=== PATIENT | female | born 1985 | race African-American/Black ===

== ENCOUNTER 2017-08-16 03:02 | Inpatient (IN) | payer OTHER ==
[2017-08-16 08:31] VITALS: BP 99/55; PULSE 97; RESP 18; TEMP 99.2; O2SAT 95
[2017-08-16] MEDS ORDERED: PRED20 PO (09:10)
[2017-08-16] MEDS ORDERED: ONDANSETRON HCL 4 MG/2 ML VIAL IV PUSH PRN (09:15)
[2017-08-16] MEDS ORDERED: ONDANSETRON ODT 4 MG TAB SL PRN (09:15)
[2017-08-16] MEDS: PANTOPRAZOLE SOD 40 MG DELAYED RELEASE TAB PO SCH (09:15)
--- NOTE | 2017-08-16 09:47 | HHI.HP ---
HPI Service [facility] Hospitalists Primary Care Physician Dr. Yousif Pugh Admission Diagnosis Autoimmune hepatitis; liver cyst Chief Complaint: Pleuritic chest pain Travel History International Travel<30 Days: No Contact w/Intl Traveler <30 Da: No Traveled to Known Affected Are: No History of Present Illness Ms. Garcia is a pleasant 32 y/o AAF with autoimmune hepatitis,liver cirrhosis, thrombocytopenia who presented to the ED at [facility] on 08/15/17 with complaints of pleuritic chest pain. She reports that around 1 month ago she developed a productive cough with white phlegm and some subjective chills. She denies any associated sore throat, sinus congestion, or fevers. She reports that the cough lasted about 2 weeks and then she went to her PCP who prescribed Amoxicillin for about 7 days and the cough improved. But over the last week the cough has returned. She is unable to recall any associated post-nasal drip, sneezing, fevers/chills, sore throat, itchy/watery eyes. She has had some occasional sinus congestion in the morning. The cough does not seem to be keeping her up during the night. Then two days ago she started experiencing some pleuritic chest pain with coughing or deep breathing which was located midsternal and in the middle of her back. This seemed to be more prominent yesterday and this prompted her to go to the ED in [place] for further evaluation. Her lab work in the ED noted WBC count 8.1, Hgb 11.1, Hct 33.5, Platelet count 88,000. Her D-Dimer was elevated at 1.55 so CTA was ordered and revealed negative for pulmonary embolic disease, minimal dependent atelectasis in the lungs, and liver cirrhosis with 8.8cm cystic mass in the right lobe. Her LFTs are elevated with TBili 3.6, AST 426, ALT 289, AlkPhos 193. Gallbladder US was performed which noted circumscribed mildly complex 9.5 x 7.8cm cyst in the right lobe of the liver of unknown etiology and multiple small gallstones with common bile duct mildly prominent at 7mm. Pt reports that she has been taking Prednisone 20mg but is not taking this daily as she has been trying to stretch out her prescriptions. She was previously following with Dr. Miranda but has not followed up in the office with her since 11/2016. She was previously on Azathioprine 50mg po daily but has not been taking this for some time, although she states that she has some pills still but has only been taking them occasionally again to try to stretch out her prescription. She had outpt labs on 08/04/17 which noted Tbili 2.6, AST 355, ALT 252, and AlkPhos 187. Pt had previously been evaluated at [facility] in 2009 and reports that she was being considered for liver transplant. She was on 6-MP at that time but was reportedly taken off this medication but to neutropenia. She states that she was later placed on Prednisone and Azathioprine which helped improve her status enough to be taken off the transplant list. Pt denies any fevers, abdominal pain, nausea/vomiting, change in stool or bowel habits, weight changes, SOB, palpitations or weakness. Review of Systems Constitutional: DENIES: Fever, Chills Eyes: DENIES: Vision loss Ears, nose, mouth, throat: DENIES: Hearing loss Respiratory: COMPLAINS OF: Cough, DENIES: Shortness of breath Cardiovascular: COMPLAINS OF: Chest pain (pleuritic pain with cough or deep breathing), Lower Extremity Edema Gastrointestinal: DENIES: Abdominal pain, Black stools, Bloody stools, Constipation, Diarrhea, Nausea, Vomiting, Difficulty Swallowing Genitourinary: DENIES: Urinary frequency, Urgency, Hematuria, Dysuria Musculoskeletal: DENIES: Back pain, Neck pain Integumentary: DENIES: Rash Neurologic: DENIES: Headache, Localized weakness Psychiatric: DENIES: Confusion Past Family Social History Past Medical History Autoimmune Hepatitis Liver cirrhosis GERD Hx of gastric ulcer Past Surgical History Liver biopsy in 2007 Bone marrow biopsy in 2007 Reported Medications Prednisone 20 Mg PO DAILY Allergies: Coded Allergies: No Known Allergies (Verified Allergy, Unknown, 08/16/17) Family History Uncle with hx of colon cancer, at age 50 Grandfather with hx of colon cancer, at age 87 Social History Denies any alcohol, tobacco, or illicit drug use Pt works at a 139[employer] and at [employer] Physical Exam Vital Signs Vital Signs Date Time Temp Pulse Resp B/P (MAP) Pulse Ox O2 Delivery O2 Flow Rate FiO2 08/16/17 08:31 99.2 97 18 99/55 (70) 95 Physical Exam GENERAL: This is a well-nourished, well-developed patient, in no apparent distress. SKIN: No rashes, ecchymoses or lesions. Cool and dry. HEENT: Atraumatic. Normocephalic. No temporal or scalp tenderness. Scleral icterus. Airway patent. NECK: Trachea midline, supple, nontender CARDIO: Regular. RESP: CTA bilaterally. No wheezes, rales, or rhonchi. ABD: +BS, soft, obese, non-tender, nondistended. EXT: Bilateral LE pitting edema NEURO: Awake and alert. Motor and sensory grossly within normal limits. Five out of 5 muscle strength in all muscle groups. Normal speech. Imaging Gallbladder US (08/16/17): 1. Circumscribed mildly complex 9.5 x 7.8cm cyst in the right lobe of the liver of unknown etiology 2. Multiple small gallstones. Common bile duct mildly prominent at 7mm. CT Pulmonary Angiogram (08/16/17): 1. Negative for pulmonary embolic disease. Minimal dependent atelectasis in the lungs. 2. Liver cirrhosis with 8.8cm cystic mass in the right lobe. Caprini VTE Risk Assessment Caprini VTE Risk Assessment: Mod/High Risk (score >= 2) Caprini Risk Assessment Model Point Value = 1 Point Value = 2 Point Value = 3 Point Value = 5 Age 41-60 Minor surgery BMI > 25 kg/m2 Swollen legs Varicose veins or History of unexplained or recurrent spontaneous Oral contraceptives or hormone replacement Sepsis (< 1 month) Serious lung disease, including pneumonia (< 1 month) Abnormal pulmonary function Acute myocardial infarction Congestive heart failure (< 1 month) History of inflammatory bowel disease Medical patient at bed rest Age 61-74 Arthroscopic surgery Major open surgery (> 45 min) Laparoscopic surgery (> 45 min) Malignancy Confined to bed (> 72 hours) Immobilizing plaster cast Central venous access Age >= 75 History of VTE Family history of VTE Factor V Leiden Prothrombin [id number] Lupus anticoagulant Anticardiolipin antibodies Elevated serum homocysteine Heparin-induced thrombocytopenia Other congenital or acquired thrombophilia Stroke (< 1 month) Elective arthroplasty Hip, pelvis, or leg fracture Acute spinal cord injury (< 1 month) Prophylaxis Regimen Total Risk Factor Score Risk Level Prophylaxis Regimen 0-1 Low Early ambulation 2 Moderate Order ONE of the following: *Sequential Compression Device (SCD) *Heparin 5000 units SQ BID 3-4 Higher Order ONE of the following medications: *Heparin 5000 units SQ TID *Enoxaparin/Lovenox 40 mg SQ daily (WT < 150 kg, CrCl > 30 mL/min) *Enoxaparin/Lovenox 30 mg SQ daily (WT < 150 kg, CrCl > 10-29 mL/min) *Enoxaparin/Lovenox 30 mg SQ BID (WT < 150 kg, CrCl > 30 mL/min) AND/OR *Sequential Compression Device (SCD) 5 or more Highest Order ONE of the following medications: *Heparin 5000 units SQ TID (Preferred with Epidurals) *Enoxaparin/Lovenox 40 mg SQ daily (WT < 150 kg, CrCl > 30 mL/min) *Enoxaparin/Lovenox 30 mg SQ daily (WT < 150 kg, CrCl > 10-29 mL/min) *Enoxaparin/Lovenox 30 mg SQ BID (WT < 150 kg, CrCl > 30 mL/min) AND *Sequential Compression Device (SCD) Assessment and Plan Problem List: (1) Autoimmune hepatitis ICD Codes: K75.4 - Autoimmune hepatitis Plan: - Pt is a 32 y/o AAF with autoimmune hepatitis,liver cirrhosis, thrombocytopenia who presented to the ED at [facility] on 08/15/17 with complaints of pleuritic chest pain. - Her lab work in the ED noted WBC count 8.1, Hgb 11.1, Hct 33.5, Platelet count 88,000. Her D-Dimer was elevated at 1.55 - CTA was ordered and revealed negative for pulmonary embolic disease, minimal dependent atelectasis in the lungs, and liver cirrhosis with 8.8cm cystic mass in the right lobe. - Her LFTs are elevated with TBili 3.6, AST 426, ALT 289, AlkPhos 193. - Gallbladder US was performed which noted circumscribed mildly complex 9.5 x 7.8cm cyst in the right lobe of the liver of unknown etiology and multiple small gallstones with common bile duct mildly prominent at 7mm. - Pt reports that she has been taking Prednisone 20mg but is not taking this daily as she has been trying to stretch out her prescriptions. - She was previously following with Dr. Miranda but has not followed up in the office with her since 11/2016. She was previously on Azathioprine 50mg po daily but has not been taking this for some time, although she states that she has some pills still but has only been taking them occasionally again to try to stretch out her prescription. - Review of outpt labs on 08/04/17 which noted Tbili 2.6, AST 355, ALT 252, and AlkPhos 187. - Pt had previously been evaluated at [facility] in 2009 and reports that she was being considered for liver transplant. She was on 6-MP at that time but was reportedly taken off this medication but to neutropenia. She states that she was later placed on Prednisone and Azathioprine which helped improve her status enough to be taken off the transplant list. - Consult GI for the autoimmune hepatitis and elevated LFTs - Recheck CBC, CMP, PT/INR this morning - Start back Prednisone 20mg po daily, to be adjusted per GI recommendations - Supportive care - Further recommendations as the case develops (2) Liver cirrhosis ICD Codes: K74.60 - Unspecified cirrhosis of liver Status: Chronic Plan: - See above (3) Elevated LFTs ICD Codes: R79.89 - Other specified abnormal findings of blood chemistry Status: Chronic Plan: - See above (4) Pleuritic chest pain ICD Codes: R07.81 - Pleurodynia Status: Acute Plan: - She reports that around 1 month ago she developed a productive cough with white phlegm and some subjective chills. She denies any associated sore throat, sinus congestion, or fevers. - She reports that the cough lasted about 2 weeks and then she went to her PCP who prescribed Amoxicillin for about 7 days and the cough improved. But over the last week the cough has returned. - She is unable to recall any associated post-nasal drip, sneezing, fevers/ chills, sore throat, itchy/watery eyes. She has had some occasional sinus congestion in the morning. - Then two days ago she started experiencing some pleuritic chest pain with coughing or deep breathing which was located midsternal and in the middle of her back. This seemed to be more prominent yesterday and this prompted her to go to the ED in [place] for further evaluation. - Pt reports that the pain has resolved with one dose of IV Morphine - She is currently not complaining of cough - IS and encourage deep breathing - There does not appear to be any evidence of pneumonia on CTA - Pt ias afebrile and with a normal WBC count, hold on any antibiotics at this time. (5) GERD (gastroesophageal reflux disease) ICD Codes: K21.9 - Gastro-esophageal reflux disease without esophagitis Status: Chronic Plan: - Pt with longstanding hx of GERD and hx of PUD - Her cough could have been related to reflux - PPI Marivel Jimenes August 16, 2017 09:47
[2017-08-16] MEDS: predniSONE 20 MG TAB PO SCH (10:00)
--- NOTE | 2017-08-16 11:15 | PD.CONS ---
HPI History of Present Illness This is a 32 year old with hx of cirrhosis and autoimmune hepatitis who presents to [facility] with pleuritic chest pain worse with breathing or exertion. GI have been consulted for management of autoimmune hepatitis and elevated LFTs. Pt was seen in our office in 2016, was placed on Prednisone 20 mg and Azathioprine 50 mg daily but pt has not been taking this daily as recommended as she ran out and hasn't been able to get a refill or f/u in the office. Pt states she had liver bx in 2007 which showed autoimmune hepatitis and was evaluated at [facility] in 2009 placed on liver transplant list but due to improvement of her status, was taken off the transplant list. Pt denies alcohol intake. She had outpt labs on 08/04/17 which noted Tbili 2.6, AST 355, ALT 252, and Alk Phos 187. Pt denies any fevers, abdominal pain, nausea/ vomiting, change in stool or bowel habits, weight changes. US 08/15/17 showed complex 9.5 X 7.8 cm cyst in the right lobe of the liver of unknown etiology, small gallstones, dilated prominent CBD at 7 mm. Labs back in 2016 AST 511, [id number], ALP 278, and bili 4.5. Pt had US guided drainage of liver cyst in 2012 with negative cytology. She had hx of PUD, EGD in [address] Negro showed gastric ulcer, pt didn't have f/u EGD, bx was benign. CTA showed cirrhosis and liver cyst. (Fredrick Quesada) PFSH Past Medical History Autoimmune Hepatitis Liver cirrhosis GERD Hx of gastric ulcer Past Surgical History Liver biopsy in 2007 Bone marrow biopsy in 2007 (Fredrick Quesada) Coded Allergies: No Known Allergies (Verified Allergy, Unknown, 08/16/17) Medications Current Medications Medications (Trade) Dose Ordered Sig/Joy Route Start Time Stop Time Status Last Admin (Zofran Odt) 4 mg Q6H PRN SL 08/16/17 09:15 (Protonix) 40 mg DAILY PO 08/16/17 09:15 (Deltasone) 20 mg DAILY PO 08/16/17 10:00 Family History Uncle with hx of colon cancer, at age 50 Grandfather with hx of colon cancer, at age 87 Social History No alcohol No smoking No illicit drug use (Fredrick Quesada) Review of Systems Constitutional: DENIES: Fever, Chills Endocrine: DENIES: Polyuria Eyes: DENIES: Double Vision Ears, nose, mouth, throat: DENIES: Hoarseness Respiratory: COMPLAINS OF: Cough Cardiovascular: DENIES: Lower Extremity Edema Gastrointestinal: COMPLAINS OF: Heartburn, DENIES: Abdominal pain, Black stools , Bloody stools, Constipation, Diarrhea, Nausea, Vomiting, Difficulty Swallowing , Anorexia, Odynophagia, Swelling of Abdomen, Hematemesis Genitourinary: DENIES: Hematuria Musculoskeletal: DENIES: Back pain Integumentary: DENIES: Jaundice Hematologic/lymphatic: DENIES: Bruising Immunologic/allergic: DENIES: Eczema Neurologic: DENIES: Abnormal gait, Headache Psychiatric: DENIES: Anxiety (Fredrick Quesada) GI Exam Vitals I&O Vital Signs Date Time Temp Pulse Resp B/P (MAP) Pulse Ox O2 Delivery O2 Flow Rate FiO2 08/16/17 08:31 99.2 97 18 99/55 (70) 95 Physical Examination HEENT: normocephalic; atraumatic; no jaundice. NECK: Neck is supple, no JVD, no lymphadenopathy. CHEST: Chest is clear to auscultation and percussion. CARDIAC: Regular rate and rhythm with no murmur gallop or rubs. ABDOMEN: Soft, obese, nondistended, nontender; no hepatosplenomegaly; bowel sounds are present in all four quadrants. EXTREMITIES: No clubbing, cyanosis, or edema. SKIN: Normal; no rash; no jaundice. COPIER TECHNICIAN: No focal deficits; alert and oriented times three. (Fredrick Quesada) Assessment and Plan Plan - hx of cirrhosis and autoimmune hepatitis- Pt was seen in our office in 2016, was placed on Prednisone 20 mg and Azathioprine 50 mg daily but pt has not been taking this daily as recommended as she ran out and hasn't been able to get a refill or f/u in the office Pt states she had liver bx in 2007 which showed autoimmune hepatitis and was evaluated at [facility] in 2009 placed on liver transplant list but due to improvement of her status, was taken off the transplant list. Pt denies alcohol intake. She had outpt labs on 08/04/17 which noted Tbili 2.6, AST 355, ALT 252, and Alk Phos 187. Pt denies any fevers, abdominal pain, nausea/vomiting, change in stool or bowel habits, weight changes. US 08/15/17 showed complex 9.5 X 7.8 cm cyst in the right lobe of the liver of unknown etiology, small gallstones, dilated prominent CBD at 7 mm. Labs back in 2016 AST 511, [id number], ALP 278, and bili 4.5. - Elevated LFTs- seems to be base line for her She had outpt labs on 08/04/17 which noted Tbili 2.6, AST 355, ALT 252, and Alk Phos 187. Labs back in 2016 AST 511, [id number], ALP 278, and bili 4.5. - liver cyst- US 08/15/17 showed complex 9.5 X 7.8 cm cyst in the right lobe of the liver of unknown etiology, small gallstones, dilated prominent CBD at 7 mm. Pt had US guided drainage of liver cyst in 2012 with negative cytology - HX of gastric ulcer- EGD in [address] Negro showed gastric ulcer, pt didn 't have f/u EGD - Chest pain- CTA showed cirrhosis and liver cyst. Plan: - DONALD - MRCP - Add Azathioprine 50 mg daily - Add actigal - Monitor labs - AFP - Patient seen and examined by Dr. Miranda and myself and this note is written on his behalf. (Fredrick Quesada) Physician Comments SEEN, EXAMINED AGREE WITH ABOVE IR CONSULT FOR POSSIBLE DRAINAGE OF LIVER CYST (Gladys Miranda MD) Fredrick Quesada August 16, 2017 11:14 Gladys Miranda MD August 16, 2017 20:14
[2017-08-16 12:12] VITALS: BP 102/58; PULSE 96; RESP 18; TEMP 98.9; O2SAT 94
[2017-08-16 13:39] LABS: AUTOMATED NEUTROPHIL # 5.4 TH/MM3 (1.8-7.7); BASOPHIL # 0.1 TH/MM3 (0-0.2); BASOPHIL % 0.7 % (0.0-2.0); EOSINOPHIL # 0.1 TH/MM3 (0-0.4); EOSINOPHIL % 1.7 % (0.0-4.0); HEMATOCRIT 33.7 % (35.0-46.0); HEMOGLOBIN 10.8 GM/DL (11.6-15.3); LYMPH % 16.4 % (9.0-44.0); LYMPHOCYTE # 1.3 TH/MM3 (1.0-4.8); MEAN CELL VOLUME 78.3 FL (80.0-100.0); MEAN CORPUSCULAR HEMOGLOBIN 25.2 PG (27.0-34.0); MEAN CORPUSCULAR HGB CONC 32.1 % (32.0-36.0); MEAN PLATELET VOLUME 9.5 FL (7.0-11.0); MONOCYTE # 0.8 TH/MM3 (0-0.9); NEUT % 70.2 % (16.0-70.0); PLATELET COUNT 88 TH/MM3 (150-450); RED CELL DISTRIBUTION WIDTH 16.3 % (11.6-17.2); WHITE BLOOD COUNT 7.7 TH/MM3 (4.0-11.0)
[2017-08-16 13:42] LABS: INTERNATIONAL NORMALIZED RATIO 1.5 RATIO; PROTHROMBIN TIME - PATIENT 15.1 SEC (9.8-11.6)
[2017-08-16 14:06] LABS: ALBUMIN 2.1 GM/DL (3.4-5.0); AST (GOT) 356 U/L (15-37); BICARBONATE 23.8 MEQ/L (21.0-32.0); BLOOD UREA NITROGEN 7 MG/DL (7-18); CALCIUM 7.7 MG/DL (8.5-10.1); CHLORIDE 109 MEQ/L (98-107); CREATININE 0.84 MG/DL (0.50-1.00); GLOMERULAR FILTRATION RATE 94 ML/MIN (>89); GLUCOSE,RANDOM 130 MG/DL (74-106); SODIUM (NA) 139 MEQ/L (136-145)
[2017-08-16 14:07] LABS: ALT (GPT) 249 U/L (10-53)
[2017-08-16 14:09] LABS: ALKALINE PHOSPHATASE 166 U/L (45-117); TOTAL BILIRUBIN ADULT 3.9 MG/DL (0.2-1.0); TOTAL PROTEIN 7.7 GM/DL (6.4-8.2)
[2017-08-16 16:49] VITALS: BP 102/67; PULSE 98; RESP 18; TEMP 97.4; TEMP 98.6; O2SAT 97
--- NOTE | 2017-08-16 18:01 | RADRPT ---
EXAM DATE/TIME: 08/16/2017 15:18 [place] COMPARISON: CT PULMONARY ANGIOGRAM, August 15, 2017, 23:54. INDICATIONS : Abdominal pain. MEDICAL HISTORY : Hepatitis. SURGICAL HISTORY : None. ENCOUNTER: Initial ACUITY: 1 day PAIN SCORE: 5/10 LOCATION: Right upper quadrant TECHNIQUE: Multiplanar, multisequence magnetic resonance imaging of the abdomen was performed. High-resolution 3D dataset was utilized to reconstruct maximum-intensity projection (MIP) images. FINDINGS: INTRAHEPATIC BILE DUCTS: Within normal limits. No significant anatomical variant is present. EXTRAHEPATIC BILE DUCTS: The common bile duct measures 5 mm. No stone or filling defect is identified. GALLBLADDER: There are multiple gallstones in the gallbladder with slight gallbladder wall prominence in trace per icholecystic fluid. LIVER: Cirrhotic appearing liver with multiple hepatic cysts. The largest measures 8.5 x 7.8 cm in the poste rior right lobe of the liver. PANCREAS: The main pancreatic duct is normal in size. There is no significant anatomical variant. Signal inte nsity is within normal limits. No mass is visualized on this non-contrast exam. OTHER: The remaining visualized structures demonstrate no acute abnormality on this non-contrast exam. CONCLUSION: 1. Cirrhotic liver containing multiple apparent cysts with the largest measuring up to 8.5 cm superio rly in the right lobe of the liver. Please note that this MRI examination does not adequately evaluat e the liver for mass lesions particularly in the setting of cirrhosis. 2. Cholelithiasis with mild gallbladder wall thickening and trace pericholecystic fluid. These findin gs are commonly seen in the setting of chronic liver disease but limited utility of imaging for evalu ation of acute cholecystitis. 3. Normal caliber common bile duct without evidence for choledocholithiasis. Vadim Roca MD on August 16, 2017 at 17:53 Board Certified Radiologist. This report was verified electronically.
[2017-08-16 20:26] VITALS: BP 116/70; PULSE 91; RESP 16; TEMP 98.1; O2SAT 96
[2017-08-16] MEDS: URSODIOL 300 MG CAP PO SCH (22:45)
[2017-08-17] VITALS (12 sets, daily range): BP systolic 88–113; BP diastolic 47–72; PULSE 73–89; RESP 16–18; TEMP 97.5–98.6; O2SAT 83–97
[2017-08-17] MEDS: azaTHIOprine 50 MG TAB PO SCH (05:21)
[2017-08-17 07:58] LABS: AUTOMATED NEUTROPHIL # 8.3 TH/MM3 (1.8-7.7); BASOPHIL % 0.4 % (0.0-2.0); EOSINOPHIL # 0.2 TH/MM3 (0-0.4); EOSINOPHIL % 1.6 % (0.0-4.0); LYMPHOCYTE # 2.1 TH/MM3 (1.0-4.8); MEAN CELL VOLUME 78.9 FL (80.0-100.0); MEAN CORPUSCULAR HEMOGLOBIN 24.9 PG (27.0-34.0); MEAN CORPUSCULAR HGB CONC 31.6 % (32.0-36.0); MEAN PLATELET VOLUME 9.1 FL (7.0-11.0); MONO % 7.3 % (0.0-8.0); MONOCYTE # 0.8 TH/MM3 (0-0.9); NEUT % 72.7 % (16.0-70.0); PLATELET COUNT 81 TH/MM3 (150-450); RED BLOOD COUNT 4.44 MIL/MM3 (4.00-5.30); RED CELL DISTRIBUTION WIDTH 16.3 % (11.6-17.2); WHITE BLOOD COUNT 11.4 TH/MM3 (4.0-11.0)
[2017-08-17] MEDS: URSODIOL 300 MG CAP PO SCH ×2 (08:25→21:21)
[2017-08-17] MEDS: PANTOPRAZOLE SOD 40 MG DELAYED RELEASE TAB PO SCH (08:25)
[2017-08-17] MEDS: predniSONE 20 MG TAB PO SCH (08:25)
[2017-08-17 08:30] LABS: INDIRECT BILIRUBIN 0.9 MG/DL (0.0-0.8); TOTAL BILIRUBIN ADULT 2.9 MG/DL (0.2-1.0); TOTAL PROTEIN 7.7 GM/DL (6.4-8.2)
[2017-08-17 08:45] LABS: TARGET CELLS 1+ (NORMAL)
--- NOTE | 2017-08-17 09:26 | HHI.PR ---
Subjective Remarks No new complaints Pt reports some coughing this morning Denies any abd pain, nausea/vomiting Afebrile Objective Vitals Vital Signs Date Time Temp Pulse Resp B/P (MAP) Pulse Ox O2 Delivery O2 Flow Rate FiO2 08/17/17 08:36 98.2 81 18 96/64 (75) 97 08/17/17 05:05 97.5 73 16 102/59 (73) 97 08/17/17 00:48 97.9 83 16 113/72 (86) 94 08/16/17 20:26 98.1 91 16 116/70 (85) 96 08/16/17 16:49 98.6 98 18 102/67 (79) 97 08/16/17 12:12 98.9 96 18 102/58 (73) 94 Result Diagram: 08/17/17 0734 08/16/17 1309 Other Results Laboratory Tests Test 08/16/17 13:09 08/17/17 07:34 White Blood Count 7.7 TH/MM3 11.4 TH/MM3 Red Blood Count 4.30 MIL/MM3 4.44 MIL/MM3 Hemoglobin 10.8 GM/DL 11.0 GM/DL Hematocrit 33.7 % 35.0 % Mean Corpuscular Volume 78.3 FL 78.9 FL Mean Corpuscular Hemoglobin 25.2 PG 24.9 PG Mean Corpuscular Hemoglobin Concent 32.1 % 31.6 % Red Cell Distribution Width 16.3 % 16.3 % Platelet Count 88 TH/MM3 81 TH/MM3 Mean Platelet Volume 9.5 FL 9.1 FL Neutrophils (%) (Auto) 70.2 % 72.7 % Lymphocytes (%) (Auto) 16.4 % 18.0 % Monocytes (%) (Auto) 11.0 % 7.3 % Eosinophils (%) (Auto) 1.7 % 1.6 % Basophils (%) (Auto) 0.7 % 0.4 % Neutrophils # (Auto) 5.4 TH/MM3 8.3 TH/MM3 Lymphocytes # (Auto) 1.3 TH/MM3 2.1 TH/MM3 Monocytes # (Auto) 0.8 TH/MM3 0.8 TH/MM3 Eosinophils # (Auto) 0.1 TH/MM3 0.2 TH/MM3 Basophils # (Auto) 0.1 TH/MM3 0.0 TH/MM3 CBC Comment AUTO DIFF AUTO DIFF Differential Comment AUTO DIFF CONFIRMED AUTO DIFF CONFIRMED Platelet Estimate LOW LOW Platelet Morphology Comment NORMAL NORMAL Prothrombin Time 15.1 SEC Prothromb Time International Ratio 1.5 RATIO Blood Urea Nitrogen 7 MG/DL Creatinine 0.84 MG/DL Random Glucose 130 MG/DL Total Protein 7.7 GM/DL 7.7 GM/DL Albumin 2.1 GM/DL 2.0 GM/DL Calcium Level 7.7 MG/DL Alkaline Phosphatase 166 U/L 155 U/L Aspartate Amino Transf (AST/SGOT) 356 U/L 268 U/L Alanine Aminotransferase (ALT/SGPT) 249 U/L 218 U/L Total Bilirubin 3.9 MG/DL 2.9 MG/DL Sodium Level 139 MEQ/L Potassium Level 3.3 MEQ/L Chloride Level 109 MEQ/L Carbon Dioxide Level 23.8 MEQ/L Anion Gap 6 MEQ/L Estimat Glomerular Filtration Rate 94 ML/MIN Tumor Marker Alpha Fetoprotein 4.0 NG/ML Target Cells 1+ Direct Bilirubin 2.0 MG/DL Indirect Bilirubin 0.9 MG/DL Imaging Last Impressions Cholangiopancreatography MRI 08/16/17 0000 Signed Impressions: Service Date/Time: Wednesday, August 16, 2017 15:18 - CONCLUSION: 1. Cirrhotic liver containing multiple apparent cysts with the largest measuring up to 8.5 cm superiorly in the right lobe of the liver. Please note that this MRI examination does not adequately evaluate the liver for mass lesions particularly in the setting of cirrhosis. 2. Cholelithiasis with mild gallbladder wall thickening and trace pericholecystic fluid. These findings are commonly seen in the setting of chronic liver disease but limited utility of imaging for evaluation of acute cholecystitis. 3. Normal caliber common bile duct without evidence for choledocholithiasis. Vadim Roca MD Gallbladder US (08/16/17): 1. Circumscribed mildly complex 9.5 x 7.8cm cyst in the right lobe of the liver of unknown etiology 2. Multiple small gallstones. Common bile duct mildly prominent at 7mm. CT Pulmonary Angiogram (08/16/17): 1. Negative for pulmonary embolic disease. Minimal dependent atelectasis in the lungs. 2. Liver cirrhosis with 8.8cm cystic mass in the right lobe. Objective Remarks General: NAD, AAOx3 Chest: CTA Cardiac: Regular Abd: +BS, soft Nd/NT Ext: Mild bilateral LE edema A/P Problem List: (1) Autoimmune hepatitis ICD Codes: K75.4 - Autoimmune hepatitis Plan: - Pt is a 32 y/o AAF with autoimmune hepatitis,liver cirrhosis, thrombocytopenia who presented to the ED at [facility] on 08/15/17 with complaints of pleuritic chest pain. - Her lab work in the ED noted WBC count 8.1, Hgb 11.1, Hct 33.5, Platelet count 88,000. Her D-Dimer was elevated at 1.55 - CTA was ordered and revealed negative for pulmonary embolic disease, minimal dependent atelectasis in the lungs, and liver cirrhosis with 8.8cm cystic mass in the right lobe. - Her LFTs are elevated with TBili 3.6, AST 426, ALT 289, AlkPhos 193. - Gallbladder US was performed which noted circumscribed mildly complex 9.5 x 7.8cm cyst in the right lobe of the liver of unknown etiology and multiple small gallstones with common bile duct mildly prominent at 7mm. - Pt reports that she has been taking Prednisone 20mg but is not taking this daily as she has been trying to stretch out her prescriptions. - She was previously following with Dr. Miranda but has not followed up in the office with her since 11/2016. She was previously on Azathioprine 50mg po daily but has not been taking this for some time, although she states that she has some pills still but has only been taking them occasionally again to try to stretch out her prescription. - Review of outpt labs on 08/04/17 which noted Tbili 2.6, AST 355, ALT 252, and AlkPhos 187. - Pt had previously been evaluated at [facility] in 2009 and reports that she was being considered for liver transplant. She was on 6-MP at that time but was reportedly taken off this medication but to neutropenia. She states that she was later placed on Prednisone and Azathioprine which helped improve her status enough to be taken off the transplant list. - Appreciate GI consult for the autoimmune hepatitis and elevated LFTs - Pt resumed on Prednisone 20mg po daily, to be adjusted per GI recommendations - Pt was started on Imuran 50mg po daily and Actigall 300mg BID on 08/16/17 - MELD score 17, based on labs from 08/16/17 - MRCP (08/16/17) --> Cirrhotic liver containing multiple apparent cysts with the largest measuring up to 8.5 cm superiorly in the right lobe of the liver. Please note that this MRI examination does not adequately evaluate the liver for mass lesions particularly in the setting of cirrhosis. Cholelithiasis with mild gallbladder wall thickening and trace pericholecystic fluid. These findings are commonly seen in the setting of chronic liver disease but limited utility of imaging for evaluation of acute cholecystitis. Normal caliber common bile duct without evidence for choledocholithiasis. - Supportive care - IR was consulted for possible drainage of the liver cyst +/- liver biopsy for today - Repeat labs in AM (2) Liver cirrhosis ICD Codes: K74.60 - Unspecified cirrhosis of liver Status: Chronic Plan: - See above (3) Elevated LFTs ICD Codes: R79.89 - Other specified abnormal findings of blood chemistry Status: Chronic Plan: - See above (4) Pleuritic chest pain ICD Codes: R07.81 - Pleurodynia Status: Acute Plan: - She reports that around 1 month ago she developed a productive cough with white phlegm and some subjective chills. She denies any associated sore throat, sinus congestion, or fevers. - She reports that the cough lasted about 2 weeks and then she went to her PCP who prescribed Amoxicillin for about 7 days and the cough improved. But over the last week the cough has returned. - She is unable to recall any associated post-nasal drip, sneezing, fevers/ chills, sore throat, itchy/watery eyes. She has had some occasional sinus congestion in the morning. - Then two days ago she started experiencing some pleuritic chest pain with coughing or deep breathing which was located midsternal and in the middle of her back. This seemed to be more prominent yesterday and this prompted her to go to the ED in [place] for further evaluation. - Pt reports that the pain has resolved with one dose of IV Morphine - She is currently not complaining of cough - IS and encourage deep breathing - There does not appear to be any evidence of pneumonia on CTA - Pt ias afebrile and with a normal WBC count, hold on any antibiotics at this time. (5) GERD (gastroesophageal reflux disease) ICD Codes: K21.9 - Gastro-esophageal reflux disease without esophagitis Status: Chronic Plan: - Pt with longstanding hx of GERD and hx of PUD - PPI Marivel Jimenes August 17, 2017 09:26
[2017-08-17] MEDS ORDERED: POTASSIUM CHLORIDE 10 MEQ CONTROLLED RELEASE TAB PO ONE (09:45)
--- NOTE | 2017-08-17 10:52 | HHI.GIFU ---
Subjective Remarks Pt resting in bed, about to go for liver cyst drainage. No complaints. (Glo Barron) Objective Vitals I&O Vital Signs Date Time Temp Pulse Resp B/P (MAP) Pulse Ox O2 Delivery O2 Flow Rate FiO2 08/17/17 08:36 98.2 81 18 96/64 (75) 97 08/17/17 05:05 97.5 73 16 102/59 (73) 97 08/17/17 00:48 97.9 83 16 113/72 (86) 94 08/16/17 20:26 98.1 91 16 116/70 (85) 96 08/16/17 16:49 98.6 98 18 102/67 (79) 97 08/16/17 12:12 98.9 96 18 102/58 (73) 94 Laboratory Laboratory Tests Test 08/16/17 13:09 08/17/17 07:34 White Blood Count 7.7 11.4 Red Blood Count 4.30 4.44 Hemoglobin 10.8 11.0 Hematocrit 33.7 35.0 Mean Corpuscular Volume 78.3 78.9 Mean Corpuscular Hemoglobin 25.2 24.9 Mean Corpuscular Hemoglobin Concent 32.1 31.6 Red Cell Distribution Width 16.3 16.3 Platelet Count 88 81 Mean Platelet Volume 9.5 9.1 Neutrophils (%) (Auto) 70.2 72.7 Lymphocytes (%) (Auto) 16.4 18.0 Monocytes (%) (Auto) 11.0 7.3 Eosinophils (%) (Auto) 1.7 1.6 Basophils (%) (Auto) 0.7 0.4 Neutrophils # (Auto) 5.4 8.3 Lymphocytes # (Auto) 1.3 2.1 Monocytes # (Auto) 0.8 0.8 Eosinophils # (Auto) 0.1 0.2 Basophils # (Auto) 0.1 0.0 CBC Comment AUTO DIFF AUTO DIFF Differential Comment AUTO DIFF CONFIRMED AUTO DIFF CONFIRMED Platelet Estimate LOW LOW Platelet Morphology Comment NORMAL NORMAL Prothrombin Time 15.1 Prothromb Time International Ratio 1.5 Blood Urea Nitrogen 7 Creatinine 0.84 Random Glucose 130 Total Protein 7.7 7.7 Albumin 2.1 2.0 Calcium Level 7.7 Alkaline Phosphatase 166 155 Aspartate Amino Transf (AST/SGOT) 356 268 Alanine Aminotransferase (ALT/SGPT) 249 218 Total Bilirubin 3.9 2.9 Sodium Level 139 Potassium Level 3.3 Chloride Level 109 Carbon Dioxide Level 23.8 Anion Gap 6 Estimat Glomerular Filtration Rate 94 Tumor Marker Alpha Fetoprotein 4.0 Target Cells 1+ Direct Bilirubin 2.0 Indirect Bilirubin 0.9 Imaging Last Impressions Cholangiopancreatography MRI 08/16/17 0000 Signed Impressions: Service Date/Time: Wednesday, August 16, 2017 15:18 - CONCLUSION: 1. Cirrhotic liver containing multiple apparent cysts with the largest measuring up to 8.5 cm superiorly in the right lobe of the liver. Please note that this MRI examination does not adequately evaluate the liver for mass lesions particularly in the setting of cirrhosis. 2. Cholelithiasis with mild gallbladder wall thickening and trace pericholecystic fluid. These findings are commonly seen in the setting of chronic liver disease but limited utility of imaging for evaluation of acute cholecystitis. 3. Normal caliber common bile duct without evidence for choledocholithiasis. Vadim Roca MD Physical Exam HEENT: PERRL; normocephalic; atraumatic; subtle icterus CHEST: CTA CARDIAC: RRR ABDOMEN: Soft, obese, nontender; no hepatosplenomegaly; bowel sounds are present in all four quadrants. EXTREMITIES: No clubbing, cyanosis, or edema. SKIN: Normal; no rash; no jaundice. DIGITAL CAMERA TECHNICIAN: No focal deficits; alert and oriented times three. (Glo Barron [facility]) Assessment and Plan Plan - hx of cirrhosis and autoimmune hepatitis- Pt was seen in our office in 2016, was placed on Prednisone 20 mg and Azathioprine 50 mg daily but pt has not been taking this daily as recommended as she ran out and hasn't been able to get a refill or f/u in the office Pt states she had liver bx in 2007 which showed autoimmune hepatitis and was evaluated at [facility] in 2009 placed on liver transplant list but due to improvement of her status, was taken off the transplant list. Pt denies alcohol intake. She had outpt labs on 08/04/17 which noted Tbili 2.6, AST 355, ALT 252, and Alk Phos 187. Pt denies any fevers, abdominal pain, nausea/vomiting, change in stool or bowel habits, weight changes. US 08/15/17 showed complex 9.5 X 7.8 cm cyst in the right lobe of the liver of unknown etiology, small gallstones, dilated prominent CBD at 7 mm. Labs back in 2016 AST 511, [id number], ALP 278, and bili 4.5. - Elevated LFTs- seems to be base line for her She had outpt labs on 08/04/17 which noted Tbili 2.6, AST 355, ALT 252, and Alk Phos 187. Labs back in 2016 AST 511, [id number], ALP 278, and bili 4.5. - liver cyst- US 08/15/17 showed complex 9.5 X 7.8 cm cyst in the right lobe of the liver of unknown etiology, small gallstones, dilated prominent CBD at 7 mm. Pt had US guided drainage of liver cyst in 2012 with negative cytology - HX of gastric ulcer- EGD [place] [address] Negro showed gastric ulcer, pt didn 't have f/u EGD - Chest pain- CTA showed cirrhosis and liver cyst. 08/17/17 no complaints, going for cyst drainage. MRCP showed mult liver cysts, cholelithaisis, chronic liver dz, cirrhosis. LFTs trending down. AFP WNL Plan: - DONALD - cont Azathioprine 50 mg daily - cont actigal - Monitor labs - await cyst drainage - Patient seen and examined by and myself and this note is on his behalf (Glo Barron) Physician Comments Patient seen and examined Agree with above Continue with current supportive care Monitor labs (Earnest Pan MD) Glo Barron August 17, 2017 10:52 Earnest Pan MD August 17, 2017 23:46
--- NOTE | 2017-08-17 12:31 | RADRPT ---
EXAM DATE/TIME: 08/17/2017 10:25 [facility] COMPARISON: No previous studies available for comparison. INDICATIONS : Abdominal pain. DOSE: 4.4 mCi Tc99m Mebrofenin IV MEDICATION: 2.5 mcg Cholecystokinin IV; Similar symptomatic response. Cholecystokinin was administered by slow infusion over 8 minutes beginning at 70 minutes. MEDICAL HISTORY : Hepatitis C. Gallstones. SURGICAL HISTORY : None. ENCOUNTER: Initial ACUITY: 1 day PAIN SCALE: 4/10 LOCATION: Right upper quadrant TECHNIQUE: Following the intravenous administration of radiotracer, dynamic sequential image were performed with continuous acquisition. Time-activity curves were generated. FINDINGS: There is significant delay in clearance of radiotracer from the blood pool consistent with moderate h epatocellular dysfunction. There is appearance in the extrahepatic biliary tree within 15-20 minutes in appearance and the gallbladder shortly thereafter. Gallbladder emptying is normal. Patient did exp erience nausea with CCK. CONCLUSION: Significant hepatocellular dysfunction. Mild biliary dyskinesia. Miguel A Fu MD on August 17, 2017 at 12:27 Board Certified Radiologist. This report was verified electronically.
[2017-08-17] MEDS ORDERED: MIDAZOLAM HCL 2 MG/2 ML VIAL ONE ×2 (13:23→14:45)
--- NOTE | 2017-08-17 15:41 | PD.RAD ---
Post CT Procedure Prog Note Pre Procedure Diagnosis: (1) Hepatic cyst (2) Liver cirrhosis (3) Autoimmune hepatitis Post Procedure Diagnosis: (1) Hepatic cyst (2) Liver cirrhosis (3) Autoimmune hepatitis Procedure Date: August 17, 2017 Supervising Radiologist: Selvin Lea Anesthesia: Local, Conscious Sedation Plan of Activity Patient to Unit: Nursing Unit Patient Condition: Good See PACS Report for procedural detail/treatment Drainage Procedure Procedure 1 Imaging Guidance: CT Procedure Type: Aspiration Procedure: Removal Drainage: Suction Fluid Removal (CCs): 190 Fluid Description: Clear, Yellow Findings: Hepatic cyst aspiration Biopsy Imaging Guidance: CT Side: Right Biopsy Procedure: Liver Specimen: Core Biopsy Selvin Lea MD August 17, 2017 15:41
--- NOTE | 2017-08-17 16:28 | RADRPT ---
EXAM DATE/TIME: 08/17/2017 14:38 [facility] COMPARISON: No previous studies available for comparison. INDICATIONS : Hepatic cyst. SEDATION TIME: 40 minutes MEDICATION(S): 1.) 4 mg midazolam (Versed) IV 2.) 200 mcg fentanyl (Sublimaze) IV DEVICE(S): 1.) 19 gauge Coaxial 2.) 18 gauge Temno core biopsy needle 3.) 17 gauge Bard Total volume of 190 cc of clear, yellow fluid was removed. Fluid was sent for laboratory ordered studies. MEDICAL HISTORY : Hepatitis C. SURGICAL HISTORY : None. ENCOUNTER: Initial ACUITY: 1 day PAIN SCORE: 0/10 LOCATION: Liver PROCEDURE: 1.) Conscious sedation with continuous EKG and oximetry monitoring. 2.) EKG and oximetry remained stable throughout the procedure. PROCEDURE : CT guided hepatic cyst aspiration The risks, benefits and alternatives to the procedure were explained and verbal and written consent w as obtained. Using automated exposure control and adjustment of the mA and/or kV according to patien t size, radiation dose was kept as low as reasonably achievable to obtain optimal diagnostic quality images. The site was prepped in sterile fashion. Full sterile technique was used, including cap, ma sk, sterile gloves and gown and a large sterile sheet. Hand hygiene and 2% chlorhexidine and/or beta dine/alcohol prep was utilized per protocol for cutaneous antisepsis. The skin and subcutaneous tiss ues were infiltrated with local anesthetic solution. DICOM format image data is available electronic ally for review and comparison. A 19 gauge needle with an internal trocar was advanced under CT guidance into a larger right hepatic lobe cyst. 190 cc of clear fluid was aspirated for cytologic analysis. The cyst was only partially de compressed. CONCLUSION: Uncomplicated CT-guided hepatic cyst aspiration for cytologic analysis as above. Selvin Lea MD on August 17, 2017 at 16:23 Board Certified Radiologist. This report was verified electronically.
--- NOTE | 2017-08-17 16:28 | RADRPT ---
EXAM DATE/TIME: 08/17/2017 14:38 [facility] COMPARISON: No previous studies available for comparison. INDICATIONS : Evaluate for liver function. SEDATION TIME: 40 minutes BIOPSY SITE: Liver MEDICATION(S): 1.) 4 mg midazolam (Versed) IV 2.) 200 mcg fentanyl (Sublimaze) IV DEVICE(S): 1.) 19 gauge Coaxial 2.) 18 gauge Temno core biopsy needle 3.) 17 gauge Bard MEDICAL HISTORY : Hepatitis C. SURGICAL HISTORY : None. ENCOUNTER: Initial ACUITY: 1 day PAIN SCORE: 0/10 LOCATION: Liver A total of two core specimen(s) were obtained and sent to the laboratory for pathologic evaluation. PROCEDURE: 1. CT guided liver biopsy. 2. Conscious sedation with continuous EKG and oximetry monitoring. 3. EKG and oximetry remained stable throughout the procedure. Prior to the procedure informed consent was obtained. Any appropriate prior imaging studies were rev iewed. Using automated exposure control and adjustment of the mA and/or kV according to patient size, radiat ion dose was kept as low as reasonably achievable to obtain optimal diagnostic quality images. DICOM format image data is available electronically for review and comparison. The site was prepped in a sterile fashion. Full sterile technique was used, including cap, mask, jamil rile gloves and gown and a large sterile sheet. Hand hygiene and 2% chlorhexidine and/or betadine/al cohol prep was utilized per protocol for cutaneous antisepsis. The skin and subcutaneous tissues wer e infiltrated with local anesthetic solution. With CT guidance the previously identified target was localized. Biopsy was performed using the presc ribed needle as above. Adequate hemostasis was obtained with compression at the puncture site. Follow-up CT scan reveals no hemorrhage. The patient tolerated the procedure well and there were no complications. The patient was returned to the Radiology Outpatient Unit in stable condition. CONCLUSION: Uncomplicated CT guided biopsy. Selvin Lea MD on August 17, 2017 at 16:26 Board Certified Radiologist. This report was verified electronically.
[2017-08-18 03:51] VITALS: BP 95/57; PULSE 72; RESP 16; TEMP 98; O2SAT 97
[2017-08-18] MEDS: azaTHIOprine 50 MG TAB PO SCH (06:00)
[2017-08-18 07:08] LABS: AUTOMATED NEUTROPHIL # 7.4 TH/MM3 (1.8-7.7); BASOPHIL % 0.4 % (0.0-2.0); EOSINOPHIL # 0.1 TH/MM3 (0-0.4); EOSINOPHIL % 1.3 % (0.0-4.0); HEMATOCRIT 33.2 % (35.0-46.0); HEMOGLOBIN 10.5 GM/DL (11.6-15.3); LYMPHOCYTE # 2.1 TH/MM3 (1.0-4.8); MEAN CORPUSCULAR HGB CONC 31.6 % (32.0-36.0); MEAN PLATELET VOLUME 9.6 FL (7.0-11.0); MONO % 6.4 % (0.0-8.0); MONOCYTE # 0.7 TH/MM3 (0-0.9); NEUT % 71.9 % (16.0-70.0); PLATELET COUNT 94 TH/MM3 (150-450); RED CELL DISTRIBUTION WIDTH 16.6 % (11.6-17.2); WHITE BLOOD COUNT 10.3 TH/MM3 (4.0-11.0)
[2017-08-18 07:20] LABS: INTERNATIONAL NORMALIZED RATIO 1.4 RATIO; PROTHROMBIN TIME - PATIENT 14.6 SEC (9.8-11.6)
[2017-08-18 07:24] VITALS: BP 92/53; PULSE 74; RESP 16; TEMP 98.2; O2SAT 97
[2017-08-18 07:39] LABS: ALKALINE PHOSPHATASE 151 U/L (45-117); TOTAL BILIRUBIN ADULT 1.8 MG/DL (0.2-1.0); TOTAL PROTEIN 7.3 GM/DL (6.4-8.2)
[2017-08-18 07:44] LABS: ALT (GPT) 195 U/L (10-53); AST (GOT) 234 U/L (15-37); BICARBONATE 23.3 MEQ/L (21.0-32.0); BLOOD UREA NITROGEN 7 MG/DL (7-18); CALCIUM 7.5 MG/DL (8.5-10.1); CHLORIDE 110 MEQ/L (98-107); CREATININE 0.78 MG/DL (0.50-1.00); GLOMERULAR FILTRATION RATE 102 ML/MIN (>89); GLUCOSE,RANDOM 70 MG/DL (74-106); MAGNESIUM 1.9 MG/DL (1.5-2.5); SODIUM (NA) 140 MEQ/L (136-145)
[2017-08-18 08:15] LABS: TARGET CELLS 1+ (NORMAL)
--- NOTE | 2017-08-18 09:58 | HHI.GIFU ---
Subjective Remarks Pt in bed, mother at bedside. She had some soreness at bx site but that is better today. She wants to go home. (Glo Barron) Objective Vitals I&O Vital Signs Date Time Temp Pulse Resp B/P (MAP) Pulse Ox O2 Delivery O2 Flow Rate FiO2 08/18/17 07:24 98.2 74 16 92/53 (66) 97 08/18/17 03:51 98.0 72 16 95/57 (70) 97 08/17/17 23:55 98.0 86 16 103/56 (72) 97 08/17/17 21:08 98.0 86 16 106/53 (70) 97 08/17/17 20:40 98.1 75 16 103/58 (73) 95 08/17/17 17:20 97.8 78 18 111/54 (73) 94 08/17/17 16:30 89 18 89/59 (69) 94 08/17/17 16:15 82 18 89/58 (68) 95 08/17/17 16:00 83 16 96/47 (63) 83 08/17/17 15:45 81 18 88/50 (63) 95 08/17/17 12:43 98.6 84 18 107/64 (78) 96 I/O 08/17/17 08/17/17 08/17/17 08/18/17 08/18/17 08/18/17 07:00 15:00 23:00 07:00 15:00 23:00 Intake Total 200 ml Balance 200 ml Intake Oral 200 ml Laboratory Laboratory Tests Test 08/17/17 17:37 08/18/17 05:35 Ammonia 10 White Blood Count 10.3 Red Blood Count 4.20 Hemoglobin 10.5 Hematocrit 33.2 Mean Corpuscular Volume 79.0 Mean Corpuscular Hemoglobin 25.0 Mean Corpuscular Hemoglobin Concent 31.6 Red Cell Distribution Width 16.6 Platelet Count 94 Mean Platelet Volume 9.6 Neutrophils (%) (Auto) 71.9 Lymphocytes (%) (Auto) 20.0 Monocytes (%) (Auto) 6.4 Eosinophils (%) (Auto) 1.3 Basophils (%) (Auto) 0.4 Neutrophils # (Auto) 7.4 Lymphocytes # (Auto) 2.1 Monocytes # (Auto) 0.7 Eosinophils # (Auto) 0.1 Basophils # (Auto) 0.0 CBC Comment AUTO DIFF Differential Comment AUTO DIFF CONFIRMED Platelet Estimate LOW Platelet Morphology Comment NORMAL Target Cells 1+ Prothrombin Time 14.6 Prothromb Time International Ratio 1.4 Blood Urea Nitrogen 7 Creatinine 0.78 Random Glucose 70 Total Protein 7.3 Albumin 2.0 Calcium Level 7.5 Magnesium Level 1.9 Alkaline Phosphatase 151 Aspartate Amino Transf (AST/SGOT) 234 Alanine Aminotransferase (ALT/SGPT) 195 Total Bilirubin 1.8 Sodium Level 140 Potassium Level 3.7 Chloride Level 110 Carbon Dioxide Level 23.3 Anion Gap 7 Estimat Glomerular Filtration Rate 102 Imaging Last Impressions Needle Aspiration CT 08/17/17 0000 Signed Impressions: Service Date/Time: Thursday, August 17, 2017 14:38 - CONCLUSION: Uncomplicated CT-guided hepatic cyst aspiration for cytologic analysis as above. Selvin Lea MD Liver Biopsy CT 08/17/17 0000 Signed Impressions: Service Date/Time: Thursday, August 17, 2017 14:38 - CONCLUSION: Uncomplicated CT guided biopsy. Selvin Lea MD Hepatobiliary Scan Nuclear Medicine 08/17/17 0000 Signed Impressions: Service Date/Time: Thursday, August 17, 2017 10:25 - CONCLUSION: Significant hepatocellular dysfunction. Mild biliary dyskinesia. Miguel A Fu MD Cholangiopancreatography MRI 08/16/17 0000 Signed Impressions: Service Date/Time: Wednesday, August 16, 2017 15:18 - CONCLUSION: 1. Cirrhotic liver containing multiple apparent cysts with the largest measuring up to 8.5 cm superiorly in the right lobe of the liver. Please note that this MRI examination does not adequately evaluate the liver for mass lesions particularly in the setting of cirrhosis. 2. Cholelithiasis with mild gallbladder wall thickening and trace pericholecystic fluid. These findings are commonly seen in the setting of chronic liver disease but limited utility of imaging for evaluation of acute cholecystitis. 3. Normal caliber common bile duct without evidence for choledocholithiasis. Vadim Roca MD Physical Exam HEENT: PERRL; normocephalic; atraumatic; subtle icterus CHEST: CTA CARDIAC: RRR ABDOMEN: Soft, obese, nontender; no hepatosplenomegaly; bowel sounds are present in all four quadrants. RUQ bandage with scant old blood. EXTREMITIES: No clubbing, cyanosis, or edema. SKIN: Normal; no rash; no jaundice. GUEST SERVICES: No focal deficits; alert and oriented times three. (Glo Barron) Assessment and Plan Plan - hx of cirrhosis and autoimmune hepatitis- Pt was seen in our office in 2016, was placed on Prednisone 20 mg and Azathioprine 50 mg daily but pt has not been taking this daily as recommended as she ran out and hasn't been able to get a refill or f/u in the office Pt states she had liver bx in 2007 which showed autoimmune hepatitis and was evaluated at [facility] in 2009 placed on liver transplant list but due to improvement of her status, was taken off the transplant list. Pt denies alcohol intake. She had outpt labs on 08/04/17 which noted Tbili 2.6, AST 355, ALT 252, and Alk Phos 187. Pt denies any fevers, abdominal pain, nausea/vomiting, change in stool or bowel habits, weight changes. US 08/15/17 showed complex 9.5 X 7.8 cm cyst in the right lobe of the liver of unknown etiology, small gallstones, dilated prominent CBD at 7 mm. Labs back in 2016 AST 511, FHB650, ALP 278, and bili 4.5. - Elevated LFTs- seems to be base line for her She had outpt labs on 08/04/17 which noted Tbili 2.6, AST 355, ALT 252, and Alk Phos 187. Labs back in 2016 AST 511, LEC998, ALP 278, and bili 4.5. - liver cyst- US 08/15/17 showed complex 9.5 X 7.8 cm cyst in the right lobe of the liver of unknown etiology, small gallstones, dilated prominent CBD at 7 mm. Pt had US guided drainage of liver cyst in 2012 with negative cytology - HX of gastric ulcer- EGD [place] [address] Negro showed gastric ulcer, pt didn 't have f/u EGD - Chest pain- CTA showed cirrhosis and liver cyst. 08/17/17 no complaints, going for cyst drainage. MRCP showed mult liver cysts, cholelithaisis, chronic liver dz, cirrhosis. LFTs trending down. AFP WNL 08/18/17 LFTs trending down. s/p liver cyst drainage and bx. Plan: - DONALD - cont Azathioprine 50 mg daily - cont actigal - Monitor labs - f/u with GI in office, 1-2 weeks - Patient seen and examined by and myself and this note is on his behalf (Glo Barron) Physician Comments Patient seen and examined Agree with above Continue with current supportive care Monitor labs Follow-up with GI post discharge (Earnest Pan MD) Glo Barron August 18, 2017 09:58 Earnest Pan MD August 18, 2017 22:38
[2017-08-18] MEDS ORDERED: PANT40TA3 PO (10:28)
[2017-08-18] MEDS ORDERED: AZAT50 PO (10:28)
[2017-08-18] MEDS ORDERED: PRED20 PO (10:28)
[2017-08-18] MEDS ORDERED: Ursodiol PO (10:28)
[2017-08-18 10:40] VITALS: BP 108/67; PULSE 90; RESP 18; TEMP 98.9; O2SAT 95
--- NOTE | 2017-08-18 10:41 | HHI.DCPOC ---
Discharge Care Plan Diagnosis: (1) Pleuritic chest pain (2) Liver cirrhosis (3) Elevated LFTs (4) GERD (gastroesophageal reflux disease) (5) Autoimmune hepatitis (6) Hepatic cyst Goals to Promote Your Health - Patient is to continue on Azathioprine 50mg daily at 0600AM and Prednisone 20mg once daily for her autoimmune hepatitis - Patient is to continue on Pantoprazole 40mg once daily in the mornings about 30 minute prior to eating anything. - She is to avoid eating anything for at least 2 hours prior to lying down and should elevated the head of her bed at night. - She is to followup with [facility], Dr. Miranda or her associate, in 1-2 weeks , call for an appt - She is to followup with her PCP, Dr. Yousif Napoles, patient has appt already scheduled. Directions to Meet Your Goals Take your medications as prescribed Follow your dietary instruction Follow activity as directed Keep your appointments as scheduled Take your immunizations and boosters as scheduled If your symptoms worsen call your PCP, if no PCP go to Urgent Care Center or Emergency Room Smoking is Dangerous to Your Health. Avoid second hand smoke Call the 24-hour hour crisis hotline for domestic abuse at Marivel Jimenes August 18, 2017 10:41
--- NOTE | 2017-08-18 10:49 | HHI.PR ---
Subjective Remarks Pt feeling well today Her cough is better with elevating her head of the bed at night Pt had liver biopsy and drainage of liver cyst on 08/17/17 with IR, pathology and cytology pending. Objective Vitals Vital Signs Date Time Temp Pulse Resp B/P (MAP) Pulse Ox O2 Delivery O2 Flow Rate FiO2 08/18/17 07:24 98.2 74 16 92/53 (66) 97 08/18/17 03:51 98.0 72 16 95/57 (70) 97 08/17/17 23:55 98.0 86 16 103/56 (72) 97 08/17/17 21:08 98.0 86 16 106/53 (70) 97 08/17/17 20:40 98.1 75 16 103/58 (73) 95 08/17/17 17:20 97.8 78 18 111/54 (73) 94 08/17/17 16:30 89 18 89/59 (69) 94 08/17/17 16:15 82 18 89/58 (68) 95 08/17/17 16:00 83 16 96/47 (63) 83 08/17/17 15:45 81 18 88/50 (63) 95 08/17/17 12:43 98.6 84 18 107/64 (78) 96 Result Diagram: 08/18/17 0535 08/18/17 0535 Other Results Laboratory Tests Test 08/16/17 13:09 08/17/17 07:34 08/17/17 17:37 08/18/17 05:35 White Blood Count 7.7 TH/MM3 11.4 TH/MM3 10.3 TH/MM3 Red Blood Count 4.30 MIL/MM3 4.44 MIL/MM3 4.20 MIL/MM3 Hemoglobin 10.8 GM/DL 11.0 GM/DL 10.5 GM/DL Hematocrit 33.7 % 35.0 % 33.2 % Mean Corpuscular Volume 78.3 FL 78.9 FL 79.0 FL Mean Corpuscular Hemoglobin 25.2 PG 24.9 PG 25.0 PG Mean Corpuscular Hemoglobin Concent 32.1 % 31.6 % 31.6 % Red Cell Distribution Width 16.3 % 16.3 % 16.6 % Platelet Count 88 TH/MM3 81 TH/MM3 94 TH/MM3 Mean Platelet Volume 9.5 FL 9.1 FL 9.6 FL Neutrophils (%) (Auto) 70.2 % 72.7 % 71.9 % Lymphocytes (%) (Auto) 16.4 % 18.0 % 20.0 % Monocytes (%) (Auto) 11.0 % 7.3 % 6.4 % Eosinophils (%) (Auto) 1.7 % 1.6 % 1.3 % Basophils (%) (Auto) 0.7 % 0.4 % 0.4 % Neutrophils # (Auto) 5.4 TH/MM3 8.3 TH/MM3 7.4 TH/MM3 Lymphocytes # (Auto) 1.3 TH/MM3 2.1 TH/MM3 2.1 TH/MM3 Monocytes # (Auto) 0.8 TH/MM3 0.8 TH/MM3 0.7 TH/MM3 Eosinophils # (Auto) 0.1 TH/MM3 0.2 TH/MM3 0.1 TH/MM3 Basophils # (Auto) 0.1 TH/MM3 0.0 TH/MM3 0.0 TH/MM3 CBC Comment AUTO DIFF AUTO DIFF AUTO DIFF Differential Comment AUTO DIFF CONFIRMED AUTO DIFF CONFIRMED AUTO DIFF CONFIRMED Platelet Estimate LOW LOW LOW Platelet Morphology Comment NORMAL NORMAL NORMAL Prothrombin Time 15.1 SEC 14.6 SEC Prothromb Time International Ratio 1.5 RATIO 1.4 RATIO Blood Urea Nitrogen 7 MG/DL 7 MG/DL Creatinine 0.84 MG/DL 0.78 MG/DL Random Glucose 130 MG/DL 70 MG/DL Total Protein 7.7 GM/DL 7.7 GM/DL 7.3 GM/DL Albumin 2.1 GM/DL 2.0 GM/DL 2.0 GM/DL Calcium Level 7.7 MG/DL 7.5 MG/DL Alkaline Phosphatase 166 U/L 155 U/L 151 U/L Aspartate Amino Transf (AST/SGOT) 356 U/L 268 U/L 234 U/L Alanine Aminotransferase (ALT/SGPT) 249 U/L 218 U/L 195 U/L Total Bilirubin 3.9 MG/DL 2.9 MG/DL 1.8 MG/DL Sodium Level 139 MEQ/L 140 MEQ/L Potassium Level 3.3 MEQ/L 3.7 MEQ/L Chloride Level 109 MEQ/L 110 MEQ/L Carbon Dioxide Level 23.8 MEQ/L 23.3 MEQ/L Anion Gap 6 MEQ/L 7 MEQ/L Estimat Glomerular Filtration Rate 94 ML/MIN 102 ML/MIN Tumor Marker Alpha Fetoprotein 4.0 NG/ML Target Cells 1+ 1+ Direct Bilirubin 2.0 MG/DL Indirect Bilirubin 0.9 MG/DL Ammonia 10 MCMOL/L Magnesium Level 1.9 MG/DL Imaging Last Impressions Needle Aspiration CT 08/17/17 0000 Signed Impressions: Service Date/Time: Thursday, August 17, 2017 14:38 - CONCLUSION: Uncomplicated CT-guided hepatic cyst aspiration for cytologic analysis as above. Selvin Lea MD Liver Biopsy CT 08/17/17 0000 Signed Impressions: Service Date/Time: Thursday, August 17, 2017 14:38 - CONCLUSION: Uncomplicated CT guided biopsy. Selvin Lea MD Hepatobiliary Scan Nuclear Medicine 08/17/17 0000 Signed Impressions: Service Date/Time: Thursday, August 17, 2017 10:25 - CONCLUSION: Significant hepatocellular dysfunction. Mild biliary dyskinesia. Miguel A Fu MD Cholangiopancreatography MRI 08/16/17 0000 Signed Impressions: Service Date/Time: Wednesday, August 16, 2017 15:18 - CONCLUSION: 1. Cirrhotic liver containing multiple apparent cysts with the largest measuring up to 8.5 cm superiorly in the right lobe of the liver. Please note that this MRI examination does not adequately evaluate the liver for mass lesions particularly in the setting of cirrhosis. 2. Cholelithiasis with mild gallbladder wall thickening and trace pericholecystic fluid. These findings are commonly seen in the setting of chronic liver disease but limited utility of imaging for evaluation of acute cholecystitis. 3. Normal caliber common bile duct without evidence for choledocholithiasis. Vadim Roca MD Gallbladder US (08/16/17): 1. Circumscribed mildly complex 9.5 x 7.8cm cyst in the right lobe of the liver of unknown etiology 2. Multiple small gallstones. Common bile duct mildly prominent at 7mm. CT Pulmonary Angiogram (08/16/17): 1. Negative for pulmonary embolic disease. Minimal dependent atelectasis in the lungs. 2. Liver cirrhosis with 8.8cm cystic mass in the right lobe. Objective Remarks General: NAD, AAOx3 Chest: CTA Cardiac: Regular Abd: +BS, soft Nd/NT Ext: Mild bilateral LE edema A/P Problem List: (1) Autoimmune hepatitis ICD Codes: K75.4 - Autoimmune hepatitis Plan: - Pt is a 32 y/o AAF with autoimmune hepatitis,liver cirrhosis, thrombocytopenia who presented to the ED at [facility] on 08/15/17 with complaints of pleuritic chest pain. - Her lab work in the ED noted WBC count 8.1, Hgb 11.1, Hct 33.5, Platelet count 88,000. Her D-Dimer was elevated at 1.55 - CTA (08/15/17) and revealed negative for pulmonary embolic disease, minimal dependent atelectasis in the lungs, and liver cirrhosis with 8.8cm cystic mass in the right lobe. - Her LFTs are elevated with TBili 3.6, AST 426, ALT 289, AlkPhos 193. - Gallbladder US (08/15/17) was performed which noted circumscribed mildly complex 9.5 x 7.8cm cyst in the right lobe of the liver of unknown etiology and multiple small gallstones with common bile duct mildly prominent at 7mm. - Pt reports that she has been taking Prednisone 20mg but is not taking this daily as she has been trying to stretch out her prescriptions. - She was previously following with Dr. Miranda but has not followed up in the office with her since 11/2016. She was previously on Azathioprine 50mg po daily but has not been taking this for some time, although she states that she has some pills still but has only been taking them occasionally again to try to stretch out her prescription. - Review of outpt labs on 08/04/17 which noted Tbili 2.6, AST 355, ALT 252, and AlkPhos 187. - Pt had previously been evaluated at [facility] in 2009 and reports that she was being considered for liver transplant. She was on 6-MP at that time but was reportedly taken off this medication but to neutropenia. She states that she was later placed on Prednisone and Azathioprine which helped improve her status enough to be taken off the transplant list. - Appreciate GI consult for the autoimmune hepatitis and elevated LFTs - Pt resumed on Prednisone 20mg po daily, to be adjusted per GI recommendations - Pt was started on Imuran 50mg po daily and Actigall 300mg BID on 08/16/17 - MELD score 17, based on labs from 08/16/17 - MRCP (08/16/17) --> Cirrhotic liver containing multiple apparent cysts with the largest measuring up to 8.5 cm superiorly in the right lobe of the liver. Please note that this MRI examination does not adequately evaluate the liver for mass lesions particularly in the setting of cirrhosis. Cholelithiasis with mild gallbladder wall thickening and trace pericholecystic fluid. These findings are commonly seen in the setting of chronic liver disease but limited utility of imaging for evaluation of acute cholecystitis. Normal caliber common bile duct without evidence for choledocholithiasis. - HIDA Scan (08/17/17) --> Significant hepatocellular dysfunction. Mild biliary dyskinesia - Supportive care - IR performed drainage of the liver cyst on 08/17 with removal of 190cc of clear , yellow fluid, cytology is pending. - Liver biopsy performed on 08/17/17, pathology is pending. - Repeat labs (08/18) --> Tbili 1.8, AST 234, ALT 195, AlkPhos 151 - Ammonia level 10 - AFP 4.0 - Pt is stable for discharge home on 08/18/17. - Patient is to continue on Azathioprine 50mg daily at 0600AM and Prednisone 20mg once daily for her autoimmune hepatitis - Patient is to continue on Pantoprazole 40mg once daily in the mornings about 30 minute prior to eating anything. - GI has recommended continuing Actigall 300mg BID as well. - She is to avoid eating anything for at least 2 hours prior to lying down and should elevated the head of her bed at night. - She is to followup with [facility], Dr. Miranda or her associate, in 1-2 weeks , call for an appt - She is to followup with her PCP, Dr. Yousif Napoles, patient has appt already scheduled. (2) Liver cirrhosis ICD Codes: K74.60 - Unspecified cirrhosis of liver Status: Chronic Plan: - See above (3) Elevated LFTs ICD Codes: R79.89 - Other specified abnormal findings of blood chemistry Status: Chronic Plan: - See above (4) Pleuritic chest pain ICD Codes: R07.81 - Pleurodynia Status: Acute Plan: - She reports that around 1 month ago she developed a productive cough with white phlegm and some subjective chills. She denies any associated sore throat, sinus congestion, or fevers. - She reports that the cough lasted about 2 weeks and then she went to her PCP who prescribed Amoxicillin for about 7 days and the cough improved. But over the last week the cough has returned. - She is unable to recall any associated post-nasal drip, sneezing, fevers/ chills, sore throat, itchy/watery eyes. She has had some occasional sinus congestion in the morning. - Then two days ago she started experiencing some pleuritic chest pain with coughing or deep breathing which was located midsternal and in the middle of her back. This seemed to be more prominent yesterday and this prompted her to go to the ED in [place] for further evaluation. - Pt reports that the pain has resolved with one dose of IV Morphine - She is currently not complaining of cough - IS and encourage deep breathing - There does not appear to be any evidence of pneumonia on CTA - Pt ias afebrile and with a normal WBC count, hold on any antibiotics at this time. - Her cough may have been more related to acid reflux. This has improved with PPI and with elevating the head of the bed at night. (5) GERD (gastroesophageal reflux disease) ICD Codes: K21.9 - Gastro-esophageal reflux disease without esophagitis Status: Chronic Plan: - Pt with longstanding hx of GERD and hx of PUD - PPI Problem Qualifiers (1) GERD (gastroesophageal reflux disease): Qualified Codes: K21.9 - Gastro-esophageal reflux disease without esophagitis aMrivel Jimenes August 18, 2017 10:49
[2017-08-18] MEDS: URSODIOL 300 MG CAP PO SCH (11:22)
[2017-08-18] MEDS: predniSONE 20 MG TAB PO SCH (11:22)
[2017-08-18] MEDS: PANTOPRAZOLE SOD 40 MG DELAYED RELEASE TAB PO SCH (11:22)
== END 2017-08-18 15:26 | disposition home or self-care (01) | DRG 443 ==
LOC: NEDDLT 07:20 → NEPGCP 07:30 → OBSVTOIN 08-17 11:16 → NEPGCP 08-17 21:15 → H1EA 08-17 21:15
PROVIDERS: ADMIT Hospitalist; ATTEND Hospitalist
PROC: 0F913ZX Drainage of Right Lobe Liver, Percutaneous Approach, Diagnostic (ICD-10-PCS; principal; 2017-08-17)
PROC: 0FB03ZX Excision of Liver, Percutaneous Approach, Diagnostic (ICD-10-PCS; 2017-08-17)
DX: K75.4 Autoimmune hepatitis (principal); D69.6 Thrombocytopenia, unspecified; K74.60 Unspecified cirrhosis of liver; K21.9 Gastro-esophageal reflux disease without esophagitis; K80.80 Other cholelithiasis without obstruction; Z87.11 Personal history of peptic ulcer disease; R07.81 Pleurodynia; K76.89 Other specified diseases of liver
CPT/HCPCS: 10160; 47000; 71275; 74181; 76377; 76705; 77012; 78227; 80053; 80076; 82105; 82140; 83735; 84703; 85025; 85379; 85610; 88112; 88307; 88313; 96374; A9537; G0378; J2250; J2270; J3010; J7500; J7512; Q9967